=== PATIENT | female | born 1970 | race Asian ===

== ENCOUNTER → 2021-06-02 | Outpatient (CLI) | payer MEDICARE | LOC: MC.RAD 09:57 | DX: Z12.31 Encounter for screening mammogram for malignant neoplasm of breast (principal); N64.89 Other specified disorders of breast ==

== ENCOUNTER → 2021-06-05 | Outpatient (CLI) | payer MEDICARE | LOC: MC.RAD 10:22 | DX: N64.89 Other specified disorders of breast (principal) ==

== ENCOUNTER 2021-10-20 05:53 | Day surgery (SDC) | payer MEDICARE ==
[~2021-10-20] VITALS: Ht 154.9 cm; Wt 58.7 kg
[~2021-10-20 05:53] MED LIST: ABILIFY 10MG TA10 MG PO; ABILIFY5 MG; ALBUTEROL0.09 MG/A1 IH; AMBIEN 5MG TABLE5 MG PO; AMBIEN5 MG PO; ATARAX50 MG PO; ATIVAN 1MG T1 MG/TAB PO; FLEXERIL10 MG PO; LEXAPRO 10MG10 MG PO; LEXAPRO5 MG PO; LORTAB 7.5/5001 TAB PO; MACROBID 1100 MG/CAP PO; MOTRIN 800800 MG/TAB PO; NO HOME MEDICATIONS; NORCO 325 MG-51 TAB PO; PREDNISONE20 MG PO; PRILOTC PO; ZITHROMAX 250M250 MG PO; ZITHROMAX Z PA250 MG PO; [UNRECOGNIZED DRUG - REMARK]
[2021-10-20] MEDS ORDERED: LIPITOR 40MG TA40 MG PO (06:12)
[2021-10-20] MEDS ORDERED: PROBIOTIC BLEN1 EACH PO (06:13)
[2021-10-20] MEDS ORDERED: COLACE 100100 MG/CAP PO (06:13)
[2021-10-20] MEDS ORDERED: OMEGA-31 SGL PO (06:13)
[2021-10-20 06:33] VITALS: BP 110/67; PULSE 60; TEMP 97
[2021-10-20 07:35] VITALS: BP 99/70; PULSE 54; TEMP 96.9
--- NOTE | 2021-10-20 07:47 | NUR ---
0735 - PT arrived from procedure drowsy but oriented and was assisted ambulating from cart to chair 2:1; monitors applied and vitals obtained, warm blankets provided. Verbal room report obtained from TIANNA Garza. PT denies pain/nausea. Gait was mildly unsteady; visitor remains present. Non-slip socks remain on. PT oriented to room and call méndez, within reach.
--- NOTE | 2021-10-20 07:49 | NUR ---
0740 - Snack drink provided to PT and visitor.
[2021-10-20 07:50] VITALS: BP 107/77; PULSE 50
--- NOTE | 2021-10-20 07:53 | NUR ---
0750 - has spoken w/ PT. VSS. PT has finished snack and drink; denies pain/nausea. Call méndez within reach; PT expressed desire to be discharged.
[2021-10-20 08:05] VITALS: BP 128/78; PULSE 47
--- NOTE | 2021-10-20 08:08 | NUR ---
0805 - VSS. IV discontinued; catheter tip intact and pressure bandage applied. NO redness or swelling noted. DC instructions and educational material reviewed w/ PT who verbalized understanding and signed the related paperwork. All questions answered to PT satisfaction. PT refused RN assistance changing, however, call méndez remains within reach and visitor remains present.
--- NOTE | 2021-10-20 08:21 | NUR ---
0815 - PT dismissed from endo via wheelchair to the PT entrence by Renetta WYNN. PT has DC packet and personal belongings; PT was transferred into the care of Jasson, who is driving private car.
== END 2021-10-20 08:20 | disposition home or self-care (01) ==
LOC: SDCO 05:53
DX: Z12.11 Encounter for screening for malignant neoplasm of colon (principal); K31.89 Other diseases of stomach and duodenum; K21.9 Gastro-esophageal reflux disease without esophagitis; K29.30 Chronic superficial gastritis without bleeding; F17.210 Nicotine dependence, cigarettes, uncomplicated
CPT/HCPCS: 43239; G0121; J2704; J7030

== ENCOUNTER → 2021-10-28 | Outpatient (CLI) | payer MEDICARE ==
[~2021-10-28] MED LIST changes: +COLACE 100100 MG/CAP PO; +LIPITOR 40MG TA40 MG PO; +OMEGA-31 SGL PO; +PROBIOTIC BLEN1 EACH PO
== END ==
LOC: COL.RAD 09:55
DX: K75.9 Inflammatory liver disease, unspecified (principal)

== ENCOUNTER 2023-09-15 10:16 | Emergency (ER) | payer MEDICARE ==
[~2023-09-15] VITALS: Ht 144.8 cm; Wt 59.1 kg
[2023-09-15 11:03] LABS: BASO % 0.6 % (0.0-2.0); EOS # 0.1 K/mm3 (0.0-0.7); EOS % 2.8 % (0.0-4.0); GRAN # 2.2 K/mm3 (1.4-6.5); GRAN % 47.5 % (42.2-75.2); HEMATOCRIT 42.7 % (37.0-47.0); LYMPH # 2.1 K/mm3 (1.2-3.4); LYMPH % 43.6 % (20.0-51.0); MEAN CELL VOLUME 90 fl (80.0-100.0); MEAN CORPUSCULAR HEMOGLOBIN 30 pg (27-31); MEAN CORPUSCULAR HGB CONC 33 g/dl (33.0-37.0); MEAN PLATELET VOLUME 9.5 fl (7.4-10.4); MONO # 0.3 K/mm3 (0.1-0.6); MONO % 5.3 % (1.7-9.3); PLATELET COUNT 215 K/mm3 (130-400); RED BLOOD COUNT 4.75 M/mm3 (4.10-5.30); REDCELL DISTRIBUTION WIDTH-CV 12.1 % (11.5-14.5)
[2023-09-15 11:23] LABS: ALANINE AMINOTRANSFERASE 34 U/L (0-55); ALKALINE PHOSPHATASE 89 U/L (40-150); ANION GAP 13 mmol/L (7-16); AST,SGOT 27 U/L (5-34); BILIRUBIN,TOTAL 0.6 mg/dL (0.2-1.2); BLOOD UREA NITROGEN 13 mg/dL (10-20); CALCIUM 9.4 mg/dL (8.4-10.2); CHLORIDE 109 mEq/L (98-107); CREATININE, serum 0.97 mg/dL (0.57-1.11); GLUCOSE 145 mg/dL (70-99); POTASSIUM 3.6 mEq/L (3.5-4.5); SODIUM 143 mEq/L (136-145); TOTAL PROTEIN 7.4 g/dl (6.2-8.1)
[2023-09-15 11:36] LABS: TROPONIN-I < 0.010 ng/mL (0.00-0.033)
[2023-09-15 12:05] LABS: COLLECTION METHOD CLEAN CATCH
[2023-09-15 12:24] LABS: PH 6.5 (5.0-8.5); URINE APPEARANCE CLEAR (CLEAR/HAZY); URINE COLOR YELLOW (YELLOW); URINE GLUCOSE NEGATIVE (NEGATIVE); URINE KETONE NEGATIVE (NEGATIVE); URINE PROTEIN(semi-quant) NEGATIVE (NEGATIVE)
[2023-09-15 12:25] LABS: URINE BLOOD NEGATIVE (NEGATIVE); URINE NITRATE NEGATIVE (NEGATIVE); URINE UROBILINOGEN 0.2 E.U/dL (0.2-1.0)
[2023-09-15 13:03] VITALS: BP 104/67; PULSE 56
== END 2023-09-15 13:09 | disposition home or self-care (01) ==
LOC: COL.ER 10:16
PROVIDERS: Nurse Practitioner; Personal Emergency Response Attendant
DX: R07.9 Chest pain, unspecified (principal); F17.210 Nicotine dependence, cigarettes, uncomplicated; Z87.19 Personal history of other diseases of the digestive system

== ENCOUNTER → 2023-10-26 | Outpatient (CLI) | payer MEDICARE ==
[2005-07-14 07:15] VITALS: TEMP 98.1
== END ==
LOC: MC.RAD 08:30
DX: Z12.31 Encounter for screening mammogram for malignant neoplasm of breast (principal)